=== PATIENT | male | born 1995 | race Two or more races ===

== ENCOUNTER 2017-05-15 01:07 | Emergency (ER) | payer OTHER ==
[~2017-05-15] VITALS: Ht 177.8 cm; Wt 166.2 kg
[~2017-05-15 01:07] MED LIST: NOHOMEMEDS
[2017-05-15 01:29] LABS: HEMATOCRIT 40.6 % (38.0-50.0); HEMOGLOBIN 14.7 G/DL (12.5-16.6); MCH 29.7 PG (29.0-34.0); MCHC 36.2 G/DL (30.0-36.0); PLATELET COUNT 244 K/uL (156-360); RBC DIS.WIDTH-CV 11.7 % (11.8-14.6); RBC DIS.WIDTH-SD 34.6 % (39-53); RED BLOOD COUNT 4.95 M/uL (4.00-5.50); WHITE BLOOD COUNT 14.8 K/uL (4.1-10.2)
[2017-05-15 01:38] LABS: ALBUMIN 4.3 g/dL (3.2-4.8); CHLORIDE 105 mEq/L (99-109); POTASSIUM 3.8 mEq/L (3.7-5.4); SODIUM 138 mEq/L (136-147)
[2017-05-15 01:41] LABS: GLUCOSE 138 mg/dL (70-99); TOTAL PROTEIN 7.3 g/dL (6.4-8.3)
[2017-05-15 01:42] LABS: TOTAL BILIRUBIN 0.6 mg/dL (0.0-1.0)
[2017-05-15 01:44] LABS: ALKALINE PHOSPHATASE 77 IU/L (3-129); CREATININE 0.8 mg/dL (0.6-1.3); GFR ESTIMATE (CALCULATED) > 59 mL/min/ (58.99-99999)
[2017-05-15 01:45] LABS: UREA NITROGEN (BUN) 13 mg/dL (9-23)
[2017-05-15 01:46] LABS: AST (GOT) 38 IU/L (2-34)
[2017-05-15 01:47] LABS: ALT (GPT) 77 IU/L (3-49)
[2017-05-15 02:09] LABS: LIPASE 17 U/L (1.0-51.0)
[2017-05-15] MEDS ORDERED: ZOFRAN4 MG PO (03:18)
[2017-05-15 03:43] VITALS: BP 115/87
== END 2017-05-15 03:44 | disposition home or self-care (01) ==
LOC: EME 01:07
DX: K80.20 Calculus of gallbladder without cholecystitis without obstruction (principal); K76.0 Fatty (change of) liver, not elsewhere classified; R19.7 Diarrhea, unspecified; F17.200 Nicotine dependence, unspecified, uncomplicated
CPT/HCPCS: 76705; 80053; 81003; 83690; 85027; 99281; 99284

== ENCOUNTER 2017-06-01 05:35 | Day surgery (SDC) | payer OTHER ==
[~2017-06-01] VITALS: Ht 177.8 cm; Wt 161.4 kg
[~2017-06-01 05:35] MED LIST changes: +AMOXICILLIN250 MG PO; +ZOFRAN4 MG PO
[2017-06-01 06:39] VITALS: BP 114/57
[2017-06-01] MEDS ORDERED: PERCOCET 5/31 TABLET PO (10:09)
[2017-06-01 10:45] VITALS: BP 108/54
[2017-06-01 11:50] VITALS: BP 108/62
== END 2017-06-01 13:10 | disposition home or self-care (01) ==
LOC: SDC 05:35
PROC: 0FT44ZZ Resection of Gallbladder, Percutaneous Endoscopic Approach (ICD-10-PCS; principal; 2017-06-01)
DX: K80.12 Calculus of gallbladder with acute and chronic cholecystitis without obstruction (principal); E66.01 Morbid (severe) obesity due to excess calories; Z68.43 Body mass index [BMI] 50.0-59.9, adult; F17.200 Nicotine dependence, unspecified, uncomplicated
CPT/HCPCS: 88304; J0330; J0690; J1100; J1885; J2001; J2405; J2710; J2795; J3010; J3475; J7643